=== PATIENT | male | born 1985 | race Caucasian/White ===

== ENCOUNTER 2022-04-29 12:54 | Outpatient (REF) | payer MEDICARE, SELFPAY ==
--- NOTE | ~2022-04-29 | XR_ITS ---
EXAMINATION: XR TOES, RIGHT CLINICAL INFORMATION: Right great toe pain and swelling. Rule out osteomyelitis. COMPARISON: None TECHNIQUE: 3 views of the right toes were obtained. FINDINGS: No fracture or dislocation. No osseous erosion. Joint spaces are maintained. The soft tissues are unremarkable. XR/XR toe RT min 2V IMPRESSION: No fracture or malalignment. No osseous erosion.
== END 2022-04-29 12:55 | disposition home or self-care (01) ==
LOC: HO.HMGCX 12:54
PROVIDERS: PCP Internal Medicine; Visit Provider Internal Medicine
DX: M79.674 Pain in right toe(s) (principal)
CPT/HCPCS: 73660

== ENCOUNTER 2022-05-02 12:46 | Outpatient (REF) | payer MEDICARE, SELFPAY ==
[2022-05-02 14:57] LABS: Erythrocyte Sedimentation Rate 3 MM/HR (0-15)
== END 2022-05-02 12:47 | disposition home or self-care (01) ==
LOC: HO.HMGCLDS 12:46
PROVIDERS: PCP Internal Medicine; Visit Provider Internal Medicine
DX: R53.83 Other fatigue (principal)
CPT/HCPCS: 36415; 85652

== ENCOUNTER 2023-03-23 12:02 | Outpatient (REF) | payer BC, SELFPAY ==
[2023-03-24 08:33] LABS: Lyme Abs Screen <0.90 index
== END 2023-03-23 12:03 | disposition home or self-care (01) ==
LOC: HO.HMGCLDS 12:02
PROVIDERS: PCP Internal Medicine; Visit Provider Internal Medicine
DX: R53.83 Other fatigue (principal); T14.8XXA Other injury of unspecified body region, initial encounter; W57.XXXA Bitten or stung by nonvenomous insect and other nonvenomous arthropods, initial encounter
CPT/HCPCS: 36415; 86617; 86618

== ENCOUNTER 2023-08-23 09:21 | Outpatient (REF) | payer BC, SELFPAY ==
[2023-08-23 10:27] LABS: MANUAL DIFF FLAG NO
[2023-08-23 10:39] LABS: Basophils Absolute Auto 0.1 X10*3/uL (0.0-0.2); Basophils Percent Auto 0.8 % (0-2); Eosinophils Absolute Auto 0.5 X10*3/uL (0.0-0.4); Eosinophils Percent Auto 7.3 % (0-4); Hematocrit 41.7 % (42.0-52.0); Hemoglobin 14.8 g/dl (14.0-18.0); Mean Corpuscular HGB Conc 35.5 g/dl (31.0-36.0); Mean Corpuscular Volume 90.3 fL (80.0-98.0); Mean Platelet Volume 9.2 fL (9.4-12.4); Neutrophils Percent Auto 58.2 % (45-73); Red Blood Count 4.62 X10*6/uL (4.60-5.80); White Blood Count 7.3 X10*3/uL (4.8-10.8)
[2023-08-23 11:29] LABS: Alanine Aminotransferase 73 U/L (0-40); Alkaline Phosphatase 41 U/L (39-117); Anion Gap 16 (12-20); Bilirubin Total 0.7 mg/dL (0.0-1.0); Blood Urea Nitrogen 14 mg/dL (9-16); Calcium 9.5 mg/dL (8.4-10.2); Carbon Dioxide 25 mmol/L (22-29); Chloride 100 mmol/L (96-108); Cholesterol 313 mg/dL (<200); Estimated Glomerular Filt Rate > 60; Glucose Fasting 92 mg/dL (60-99); HDL Cholesterol 53 mg/dL (>40); LDL Cholesterol Calculated 231 mg/dL (<100); Potassium 3.9 mmol/L (3.3-5.1); Sodium 137 mmol/L (135-145); Total Protein 7.9 g/dL (6.5-8.0); Triglycerides 146 mg/dL (<150)
== END 2023-08-23 09:22 | disposition home or self-care (01) ==
LOC: HO.HMGCLDS 09:21
PROVIDERS: PCP Internal Medicine; Visit Provider Internal Medicine
DX: Z00.00 Encounter for general adult medical examination without abnormal findings (principal); E78.5 Hyperlipidemia, unspecified
CPT/HCPCS: 36415; 80053; 80061; 85025

== ENCOUNTER 2024-05-06 15:10 | Outpatient (REF) | payer BC, SELFPAY ==
[2024-05-06 18:08] LABS: Cholesterol 277 mg/dL (<200); HDL Cholesterol 59 mg/dL (>40); LDL Cholesterol Calculated 164 mg/dL (<100); Triglycerides 272 mg/dL (<150)
--- OUTSIDE RECORDS SUMMARY | 2024-05-06 19:07 | XMS_ITS | Patient Health Record ---
Author Organization [facility] Address [address] [address] Care Team Providers Care Pastry Supervisor Name Role Phone Rodri Johnson MD Primary Care Provider UnavailEdie Moran Unavailable [phone] Allergies No Known Allergies Reason For Referral No Information Medications Medication SIG (Take, Route, Frequency, Duration) Notes Start Date End Date Status Omeprazole Active Work Note . . . Patient seen on 05/17/22 had procedure that required him to stay off of his foot for the day 05/23/2022 Active Lisinopril 10 MG TAKE 1 TABLET BY MARIA DEL ROSARIO TH EVERY DAY Oral for 90 Active Amoxicillin-Pot Clavulanate 875-125 MG TAKE 1 TABLET BY MOUTH TWICE A DAY FOR 7 DAYS Oral for 7 Not-Taking Magnesium Active Social History Tobacco Use: Social History Observation Description Date Details (start date - stop date) Former Smoker NA - NA Tobacco Use/Smoking Question Answer Notes Are you a: former smoker Additional Findings: Tobacco Non-User Current no n-smoker Alcohol Screen Question Answer Notes Did you have a drink containing alcohol in the p ast year? No Points 0 Interpretation Negative Plan Of Treatment No Information Insurance Providers Payer Name Payer Address Payer Phone Subscriber Number Group Number Insured Name Patient Relationship to Insured Coverage Start Date Coverage End Date [facility] [address] [place] [address] [phone] [id number] Dwight Willams Self - patient is the insured Medical (General) History Medical History History ICD Code Chicken pox High blood pressure Reflux ( GERD) Warts Surgical History Surgery Date(Month/Year)
== END 2024-05-06 15:11 | disposition home or self-care (01) ==
LOC: HO.HMGCLDS 15:10
PROVIDERS: PCP Internal Medicine; Visit Provider Internal Medicine
DX: E78.00 Pure hypercholesterolemia, unspecified (principal)
CPT/HCPCS: 36415; 80061